=== PATIENT | female | born 1985 | race Two or more races ===

== ENCOUNTER 2017-05-27 11:08 | Inpatient (IN) | payer MEDICAID ==
[2017-05-27] MEDS ORDERED: ceFOXitin 2 GM IVPREMIX* 2 GM/50 ML BAG IVPB ONE (12:11)
[2017-05-27] MEDS ORDERED: Sodium Citrate/Citric Acid* 15 ML UDC PO ONE (12:11)
[2017-05-27] MEDS ORDERED: Sodium Citrate/Citric Acid* 15 ML UDC ONE (12:14)
--- NOTE | 2017-05-27 12:20 | HP ---
General Information - General Information Maternal Age: 32 Grav: 6 Para: 3 SAB: 2 IEA: 0 Estimated Due Date: 06/09/17 Determined By: LMP Gestational Age in Weeks and Days: 38 Weeks and 1 Days Maternal Blood Type and Rh: O Positive - Results this Serology/RPR Result: Non-Reactive Rubella Result: Immune HBsAg Result: Negative HIV Result: Negative GBS Culture Result: Positive Past Medical History Delivery History: Hx C/Section - Section X 3, See Records Pertinent Past Medical History: See Records Past Medical History Comment: PCOS and Obesity Pertinent Past Surgical History: See Records Pertinent Family History: See Records - Antepartal Records Antepartal Records: Reviewed, Complicated by: - 38 weeks, decelerations, poor FHT variabilty, Prior x3 Review of Systems Constitutional: Comfortable CV Complaint: No Respiratory: Shortness of Breath: No Gastrointestinal: No Nausea/Vomiting Genitourinary: No Dysuria, No Bleeding, No Leaking Fluid Musculoskeletal: No Complaint Neurological: No Headache Movement: Decreased Exam Allergies/Adverse Reactions: Allergies No Known Allergies Allergy (Verified 05/27/17 11:36) temp-98.0 Pulse-68 BP 128/75 RR20 POx 100% RA - Measurements Height: 5 ft 3.75 in Weight: 256 lb Weight in lbs: 256 Body Mass Index (BMI): 44.2 Pre- Weight: 252 lb Weight Gained This : 4 lbs and 0 ozs - Exam Abdomen: No Upper Quadrant Pain Breast: Breast Exam Deferred CVA: No CVA Tenderness Extremities: No Edema Heart: Normal Rhythm/Heart Sounds HEENT: No Significant Findings Lungs: Clear Bilaterally Rectal: Rectal Exam Deferred EFM Findings - External Monitor Findings Baseline Heart Rate: 150 External Monitor Findings: Variability Minimal, Variable or Late Deceleration Pattern Present Contractions: Irregular Assessment/Plan - Reason for Visit Reason for Visit: Decreased movement. - Obstetrical Risk Factors Obstetrical Risk Factors: GBS Positive, Obesity, Gestational Diabetes, Previous C/Section in Labor Risk Factors Comment: GDM A2 - Plan Plan: Expedite C/S Delivery
[2017-05-27 12:26] LABS: ABS Basophils 0 10^3/ul (0-0.2); ABS Eosinophils 0.1 10^3/ul (0-0.6); ABS Lymphocytes 2.8 10^3/ul (1.0-4.8); ABS Monocytes 0.7 10^3/ul (0-0.8); ABS Neutrophils 7.4 10^3/ul (1.5-7.7); ABS Nucleated RBC 0 10^3/ul; Eosinophil % 1.2 % (0-6); Hematocrit 36 % (35-47); Hemoglobin 12.2 g/dl (12.0-16.0); Lymphocyte % 24.8 % (25-47); Mean Corpuscular HGB Conc 34 g/dl (31-36); Mean Corpuscular Hemoglobin 28 pg (27-31); Mean Corpuscular Volume 82 fL (80-97); Mean Platelet Volume 8.4 um3 (7.4-10.4); Nucleated Red Blood Cells % 0.1; Platelet Count 282 10^3/ul (150-450); Red Blood Count 4.36 10^6/ul (4.0-5.4); Red Cell Distribution Width 14 % (10.5-15); White Blood Count 11.1 10^3/ul (3.5-10.8)
[2017-05-27] MEDS ORDERED: Morphine PF AMP (0.5MG/ML)* 5 MG/10 ML AMP ONE (12:53)
[2017-05-27 13:10] LABS: EGFR Non-African American 118.9 (>60)
[2017-05-27] MEDS ORDERED: OXYTOCIN* 10 UNITS/ML 1 ML VIAL ONE (13:25)
[2017-05-27] MEDS ORDERED: Succinylcholine* 20 MG/ML 10 ML VIAL ONE (14:06)
[2017-05-27] MEDS ORDERED: Propofol* 10 MG/ML 20 ML BTL IV PUSH ONE (14:06)
[2017-05-27] MEDS ORDERED: Glycerin ADULT SUPP PR PRN (14:21)
[2017-05-27] MEDS ORDERED: Dibucaine 1% 28.35 GM TUBE PR PRN (14:21)
[2017-05-27] MEDS ORDERED: Zolpidem TAB* 5 MG PO PRN (14:21)
[2017-05-27] MEDS ORDERED: Acetaminophen TAB* 325 MG PO PRN (14:21)
[2017-05-27] MEDS ORDERED: Witch Hazel PAD* JAR TOPICAL PRN (14:21)
[2017-05-27] MEDS ORDERED: Ondansetron INJ* 2 MG/ML VIAL IV PRN (14:27)
[2017-05-27] MEDS ORDERED: Naloxone* 0.4 MG/ML 1 ML VIAL IV PRN ×2 (14:27)
[2017-05-27] MEDS ORDERED: oxyCODONE/Acetamin 5/325 MG* TAB PO PRN (14:27)
[2017-05-27] MEDS ORDERED: Nalbuphine* 20 MG/ML 1 ML VIAL IV PRN (14:27)
[2017-05-27] MEDS: Ibuprofen TAB* 400 MG PO SCH ×2 (15:58→20:39)
[2017-05-27] MEDS: Docusate CAP* 100 MG PO SCH (20:39)
[2017-05-27] MEDS: Simethicone TAB* 80 MG TAB.CHEW PO SCH (20:39)
[2017-05-28] MEDS: Ibuprofen TAB* 400 MG PO SCH (03:02)
[2017-05-28 07:02] LABS: ABS Basophils 0 10^3/ul (0-0.2); ABS Eosinophils 0.1 10^3/ul (0-0.6); ABS Lymphocytes 3.3 10^3/ul (1.0-4.8); ABS Monocytes 0.9 10^3/ul (0-0.8); ABS Neutrophils 8.9 10^3/ul (1.5-7.7); ABS Nucleated RBC 0 10^3/ul; Eosinophil % 0.9 % (0-6); Hematocrit 31 % (35-47); Hemoglobin 10.4 g/dl (12.0-16.0); Lymphocyte % 24.5 % (25-47); Mean Corpuscular HGB Conc 34 g/dl (31-36); Mean Corpuscular Hemoglobin 28 pg (27-31); Mean Corpuscular Volume 83 fL (80-97); Mean Platelet Volume 8.3 um3 (7.4-10.4); Nucleated Red Blood Cells % 0.1; Platelet Count 254 10^3/ul (150-450); Red Blood Count 3.71 10^6/ul (4.0-5.4); Red Cell Distribution Width 14 % (10.5-15); White Blood Count 13.3 10^3/ul (3.5-10.8)
[2017-05-28] MEDS: Docusate CAP* 100 MG PO SCH ×3 (08:17→20:25)
[2017-05-28] MEDS: Simethicone TAB* 80 MG TAB.CHEW PO SCH ×4 (08:17→20:26)
[2017-05-28] MEDS: oxyCODONE/Acetamin 5/325 MG* TAB PO PRN ×3 (08:18→20:26)
[2017-05-28] MEDS ORDERED: Ferrous Gluconate TAB* 324 MG TAB PO SCH (09:00)
--- NOTE | 2017-05-28 10:43 | OP ---
OPERATIVE REPORT: DATE OF OPERATION: 05/27/17 DATE OF : 87 SURGEON: Eleazar Torrez MD PATCH SETTER SURGEON: Oly Hernández MD ANESTHESIA: Spinal. PRE-OP DIAGNOSES: Intrauterine at 38 weeks with a prior section x3 with a persist ent category 2 tracing and variable and late decelerations. POST-OP DIAGNOSES: Intrauterine at 38 weeks with a prior section x3 with a persis tent category 2 tracing and variable and late decelerations along with meconium-stained fluid and a t rue cord knot. OPERATIVE PROCEDURE: Repeat low transverse section. ESTIMATED BLOOD LOSS: 700 cc. SPECIMEN SENT TO PATHOLOGY: Cord blood. IV FLUIDS: She received 1400 cc of IV crystalloid fluid. URINE OUTPUT: Clear. FINDINGS: Delivery of a viable male over meconium fluid with true cord knot x1, weighing 5 po unds 1 ounce with Apgars of 8 and 9. The placenta was grossly intact with a 3-vessel cord noted. Th e uterus, adnexa, bowel, and bladder were within normal limits. DESCRIPTION OF PROCEDURE: The patient was taken to operating room where she was identified. She was placed on the operating table where a spinal anesthetic was obtained without difficulty. She was th en placed in the supine position with a leftward tilt, prepped and draped in a normal sterile fashion . A Pfannenstiel skin incision was made with a knife and carried through the underlying layer of fas blake. The fascia was then nicked in the midline and extended laterally with curved Castrejon scissors. The fascia was then grasped superiorly and inferiorly with Rudy clamps and dissected off sharply from the rectus muscle. The rectus muscle was in the midline bluntly. The peritoneum was ident ified, grasped with pickups and entered sharply with Metzenbaum scissors and extended laterally blunt ly. At this point, a wound retractor was introduced into the patient's abdomen. A low transverse ut erine incision was made with a knife and extended laterally with bandage scissors. The 's head was then grasped and delivered atraumatically. The rest of the infant's body was then delivered. Th e cord was clamped and cut, and the was handed off to awaiting buncher operator. Cord bloods were obtained. The placenta was then removed manually. The uterus was then exteriorized, cleared of all clot and debris using moist laparotomy sponges. The uterine incision was then closed using 0 Polysor b suture in a running locked fashion with a second imbricating layer of 0 Polysorb suture with good h emostasis noted. The patient's abdomen was then irrigated with normal saline, which was suctioned. The gutters were then cleared of all clot and debris using moist laparotomy sponges. The uterine inc ision was noted to be hemostatic. All sponges and instruments were removed from the patient's abdome n. The peritoneum was then closed using 3-0 Polysorb suture in a running fashion. The fascia was cl osed using 0 Polysorb suture in a running fashion. The skin was closed with 4-0 Monocryl subcuticula r stitch. The patient tolerated the procedure well. Sponge, lap, and needle counts were correct x2. She was then transferred to recovery room area in stable condition. [id number]/[facility] #: [id number]
[2017-05-28] MEDS: Ibuprofen TAB* 600 MG PO PRN ×2 (14:02→20:25)
[2017-05-29] MEDS: Ibuprofen TAB* 600 MG PO PRN ×4 (04:25→23:44)
[2017-05-29] MEDS: oxyCODONE/Acetamin 5/325 MG* TAB PO PRN ×4 (06:06→21:33)
[2017-05-29] MEDS: Docusate CAP* 100 MG PO SCH ×3 (09:48→21:33)
[2017-05-29] MEDS: Simethicone TAB* 80 MG TAB.CHEW PO SCH ×4 (09:48→21:33)
[2017-05-30] MEDS: oxyCODONE/Acetamin 5/325 MG* TAB PO PRN ×3 (01:49→13:02)
[2017-05-30] MEDS: Ibuprofen TAB* 600 MG PO PRN ×2 (06:40→13:01)
[2017-05-30 09:06] VITALS: BP 97/67
[2017-05-30] MEDS: Docusate CAP* 100 MG PO SCH (09:30)
[2017-05-30] MEDS: Simethicone TAB* 80 MG TAB.CHEW PO SCH ×3 (09:30→13:01)
== END 2017-05-30 13:34 | disposition home or self-care (01) | DRG 540 ==
LOC: MCHOBOUT 11:08 → MCHOB 11:51
PROVIDERS: ADMIT Obstetrics & Gynecology; ATTEND Obstetrics & Gynecology
PROC: 4A1HXCZ Monitoring of Products of Conception, Cardiac Rate, External Approach (ICD-10-PCS; 2017-05-27)
PROC: 10D00Z1 Extraction of Products of Conception, Low, Open Approach (ICD-10-PCS; principal; 2017-05-27 12:49)
DX: O76 Abnormality in fetal heart rate and rhythm complicating labor and delivery (principal); Z68.41 Body mass index [BMI] 40.0-44.9, adult; O99.824 Streptococcus B carrier state complicating childbirth; O34.211 Maternal care for low transverse scar from previous cesarean delivery; O99.214 Obesity complicating childbirth; E66.9 Obesity, unspecified; O36.8130 Decreased fetal movements, third trimester, not applicable or unspecified; O77.0 Labor and delivery complicated by meconium in amniotic fluid; O69.2XX0 Labor and delivery complicated by other cord entanglement, with compression, not applicable or unspecified; Z3A.38 38 weeks gestation of pregnancy; Z37.0 Single live birth; O24.424 Gestational diabetes mellitus in childbirth, insulin controlled
CPT/HCPCS: 36415; 80053; 85025; 86850; 86900; 86901; A9270-GY; J0330; J0694; J2300; J2590; J2704